=== PATIENT | female | born 1975 | race Caucasian/White ===

== ENCOUNTER 2017-04-18 16:49 | Emergency (ER) | payer OTHER ==
[2017-04-18 16:58] VITALS: BP 127/97
--- NOTE | 2017-04-18 17:28 | UC ---
Skin Complaint HPI - HPI Summary HPI Summary: SEVERAL WEEKS OF MILD SKIN PEELING ON PALMS OF HANDS, FINGERS AND THUMBS. 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 NO KNOWN EXPOSURE. NO NEW MEDICATIONS. NO EXCESSIVE DISHWASHING OR SOAKING. NO FEVER. NO SCALING OR RASH ELSEWHERE. - History of Current Complaint Chief Complaint: UCSkin Time Seen by Provider: 04/18/17 17:10 Stated Complaint: PEELING SKIN ON HANDS Hx Obtained From: Patient Hx Last Menstrual Period: 03/11/17 Onset/Duration: Gradual Onset, Lasting Weeks, Still Present Skin Exposure Onset/Duration: Weeks Ago Onset Severity: Mild Current Severity: Mild Location: Discrete, Hand (Right), Hand (Left) Aggravating: Nothing Alleviating: OTC Creams/Salves - NEOSPORIN CRAM SEEMS TO HELP Associated Signs & Symptoms: Positive: Rash. Negative: Nausea, Vomiting, Numbness, Fever, Chills, Cough, Wheezing, Syncope, Drainage, Bruising, Tenderness, Red Streaks Related History: Possible Reaction to: Environmental Exposure - Allergy/Home Medications Allergies/Adverse Reactions: Allergies Allergy/AdvReac Type Severity Reaction Status Date / Time Airborn allergies Allergy See Comment Uncoded 04/18/17 16:58 Review of Systems Constitutional: Negative Skin: Rash Eyes: Negative ENT: Negative Respiratory: Negative Cardiovascular: Negative Gastrointestinal: Negative Genitourinary: Negative Motor: Negative Neurovascular: Negative Musculoskeletal: Negative Neurological: Negative Psychological: Negative All Other Systems Reviewed And Are Negative: Yes PMH/Surg Hx/FS Hx/Imm Hx Previously Healthy: Yes Other History Of: Negative For: HIV, Hepatitis B, Hepatitis C, Anticoagulant Therapy - Surgical History Surgical History: Yes Surgery Procedure, Year, and Place: 2006- ovary removal - Family History Known Family History: Positive: Hypertension Negative: Cardiac Disease - Social History Occupation: Employed Full-time Lives: With Family Alcohol Use: None Substance Use Type: None Smoking Status (MU): Never Smoked Tobacco Physical Exam Triage Information Reviewed: Yes Appearance: Well-Appearing, No Pain Distress, Well-Nourished Vital Signs: Initial Vital Signs Temp 98.5 F 04/18/17 16:55 Pulse 86 04/18/17 16:55 Resp 16 04/18/17 16:55 BP 127/97 04/18/17 16:55 Pulse Ox 99 04/18/17 16:55 Vital Signs Reviewed: Yes Eye Exam: Normal ENT Exam: Normal Dental Exam: Normal Neck exam: Normal Neck: Positive: Supple, Nontender, No Lymphadenopathy Respiratory Exam: Normal Respiratory: Positive: Chest non-tender, Lungs clear, Normal breath sounds, No respiratory distress, No accessory muscle use Cardiovascular Exam: Normal Cardiovascular: Positive: RRR, No Murmur, Pulses Normal Abdominal Exam: Normal Musculoskeletal Exam: Normal Musculoskeletal: Positive: Strength Intact, ROM Intact Neurological Exam: Normal Psychological Exam: Normal Skin: Positive: rashes - MILD PEELING SKIN ON BILATERAL PALMS AND FINGERS Course/Dx - Differential Diagnoses - Skin Complaint Differential Diagnoses: Contact Dermatitis, Eczema, Impetigo, Local Allergic Reaction, MRSA, Other - Diagnoses Provider Diagnoses: BILATERAL HAND ECZEMA Discharge - Discharge Plan Condition: Stable Disposition: HOME Prescriptions: Triamcinolone 0.5% OINT * 1 applic TOPICAL TID #1 tube Patient Education Materials: Contact Dermatitis (ED), Eczema (ED) Referrals: Rosita Benz MD [Primary Care Provider] - Randi Enamorado [Medical Doctor] -
== END 2017-04-18 17:25 | disposition home or self-care (01) ==
LOC: UCCORT 16:49
DX: L25.9 Unspecified contact dermatitis, unspecified cause (principal)
CPT/HCPCS: 99212; G0463

== ENCOUNTER 2019-04-26 13:40 | Emergency (ER) | payer OTHER ==
[2019-04-26 14:12] VITALS: BP 135/80
--- NOTE | 2019-04-26 14:40 | UC ---
Throat Pain/Nasal Harish HPI - HPI Summary HPI Summary: C/O ear ache yesterday, with sore throat and congestion with fevers today. Does have a history of allergies. - History of Current Complaint Chief Complaint: UCEar Stated Complaint: SORE THROAT, RIGHT EAR PAIN Time Seen by Provider: 04/26/19 14:32 Hx Obtained From: Patient Hx Last Menstrual Period: 04/05/19 ?: No Onset/Duration: Sudden Onset, Lasting Days - 2, Worse Since - today Severity: Moderate Pain Intensity: 5 Cough: None Associated Signs & Symptoms: Positive: Dysphagia, Nasal Discharge, Fever, Other - ear ache with decreased hearing Related History: Seasonal Allergies - Allergies/Home Medications Allergies/Adverse Reactions: Allergies Allergy/AdvReac Type Severity Reaction Status Date / Time Airborn allergies Allergy See Comment Uncoded 04/26/19 14:10 Home Medications: Home Medications Omeprazole 20 mg PO BID 04/26/19 [History Confirmed 04/26/19] PMH/Surg Hx/FS Hx/Imm Hx Other Respiratory History: Sleep Apnea Other History Of: Negative For: HIV, Hepatitis B, Hepatitis C, Anticoagulant Therapy - Surgical History Surgical History: Yes Surgery Procedure, Year, and Place: 2006- ovary removal. choly. D&C - Family History Known Family History: Positive: Hypertension Negative: Cardiac Disease - Social History Occupation: Employed Full-time Lives: With Family Alcohol Use: None Substance Use Type: None Smoking Status (MU): Never Smoked Tobacco Review of Systems All Other Systems Reviewed And Are Negative: Yes Constitutional: Positive: Fever ENT: Positive: Sore Throat, Ear Ache, Nasal Discharge Physical Exam Triage Information Reviewed: Yes Appearance: No Pain Distress, Ill-Appearing, Obese Vital Signs: Initial Vital Signs Temp 98.9 F 04/26/19 14:08 Pulse 89 04/26/19 14:08 Resp 15 04/26/19 14:08 BP 135/80 04/26/19 14:08 Pulse Ox 100 04/26/19 14:08 Vital Signs Reviewed: Yes Eyes: Positive: Conjunctiva Clear ENT: Positive: Pharynx normal, Nasal congestion, TMs normal, Tonsillar swelling - mild hypertrophy without erythema Neck: Positive: Supple, Tenderness @ - bilateral anterior cervical nodes. Respiratory Exam: Normal Cardiovascular Exam: Normal Musculoskeletal Exam: Normal Neurological Exam: Normal Psychological Exam: Normal Skin Exam: Normal Diagnostics - Laboratory Lab Results: Rapid strep is negative Throat Pain/Nasal Course/Dx - Differential Dx/Diagnosis Differential Diagnosis/HQI/PQRI: Pharyngitis, Sinusitis, Tonsillitis, URI Provider Diagnosis: Acute viral pharyngitis, Eustachian tube dysfunction Discharge ED - Sign-Out/Discharge Documenting (check all that apply): Patient Departure All imaging exams completed and their final reports reviewed: No Studies - Discharge Plan Condition: Stable Disposition: HOME Patient Education Materials: Pharyngitis (ED) Referrals: Rosita Benz MD [Primary Care Provider] - If Needed Additional Instructions: NASAL SPRAYS AND DROPS: Afrin in the PUMP/ MIST bottle (Get generic 12 hours nasal decongestant spray). Tilt your head down and look at the floor while doing a strong sniff with the spray. Decongestant nasal sprays and drops often give dramatic relief from congestion. They are often recommended for patients with sinus infection to assist with sinus drainage. Persons with high blood pressure should consult the doctor before using these nasal sprays. Afrin and Segundo-Synephrine are common [id number] preparations. They should not be used for more than five days, as "rebound" congestion can occur - - the congestion flares as the drug wears off. A way of dealing with this rebound congestion problem is to medicate only one nostril each time, allowing the other nostril to recover from the medicine' s effects. When you no longer need the drug during the day, spray only one nostril each night. This helps you sleep well without severe rebound congestion. Call the doctor if you develop severe headache, palpitations, or chest pain. EUSTATION TUBE DYSFUNCTION: The tube that allows the middle ear to equalize the pressure with the outside air is blocked. This can be due to colds, allergies, smoke, or other irritants. Short term treatment can include Afrin, sudafed and nasal cortisone sprays for allergies. Cold-eeze Zinc Lozenges: These are helpful if started in the first 48-72 hours of an upper respiratory illness. You want to buy the specific brand Cold-eeze. - Billing Disposition and Condition Condition: STABLE Disposition: Home
== END 2019-04-26 14:56 | disposition home or self-care (01) ==
LOC: UCCORT 13:40
DX: J02.8 Acute pharyngitis due to other specified organisms (principal); H69.80 Other specified disorders of Eustachian tube, unspecified ear
CPT/HCPCS: 87651; 99211; G0463